=== PATIENT | female | born 1960 | race Asian ===

== ENCOUNTER 2016-11-13 18:14 | Emergency (ER) | payer OTHER ==
[~2016-11-13] VITALS: Ht 167.6 cm; Wt 77.3 kg
[2016-11-13 18:15] VITALS: Ht 167.6 cm; Wt 77.3 kg
--- OUTSIDE RECORDS SUMMARY | 2016-11-13 18:24 | XMS REPORT | Continuity of Care Document ---
Author Author [facility] Organization [facility] Address Unknown Phone Unavailable Allergies Active Description Code Type Severity Reaction Onset Reported/Identified Relationship to Patient Clinical Status Yes NKDA N/A N/A Yes No Allergy Information Drug Allergy 06/20/2012 Yes No Known Allergies Drug Allergy 06/20/2012 Yes No Known Allergies Drug Allergy N/A N/A 06/20/2012 Yes No Known Drug Allergies Drug Allergy 06/20/2012 Yes No Known Drug Allergies Drug Allergy N/A N/A 06/20/2012 Yes No Known Food Allergies Food Allergy 06/20/2012 Yes No Known Food Allergies Food Allergy N/A N/A 06/20/2012 Medications Problems Date Dx Coded Attending Type Code Diagnosis Diagnosed By 06/20/2012 Antonio Palafox MD Final 280.9 IRON DEF ANEMIA NOS 06/20/2012 Antonio Palafox MD Final 429.3 CARDIOMEGALY 06/20/2012 Antonio Palafox MD Final 553.3 DIAPHRAGMATIC HERNIA 06/20/2012 Antonio Palafox MD Final 593.2 ACQUIRED KIDNEY CYST 06/20/2012 Antonio Palafox MD Final 621.2 UTERINE HYPERTROPHY 06/20/2012 Antonio Palafox MD Final 719.43 JOINT PAIN-FOREARM 06/20/2012 Antonio Palafox MD Final 724.1 PAIN IN THORACIC SPINE 06/20/2012 Antonio Palafox MD Final 786.50 CHEST PAIN NOS 06/20/2012 Antonio Palafox MD Final 789.67 GENERAL ABD TENDERNESS 06/20/2012 Antonio Palafox MD Admitting 959.8 INJ MULT SITE/SITE NEC 05/12/2013 Rip Joya MD Final 793.82 INCONCLUSIVE MAMMOGRAM 05/12/2013 Rip Joya MD Final V76.12 SCREEN MAMMOGRAPHY NEC 05/12/2013 Rip Joya MD Admitting V76.12 SCREEN MAMMOGRAPHY NEC 07/01/2013 Rip Joya MD Final 610.0 SOLITARY BREAST CYST 07/01/2013 Rip Joya MD Final 793.82 INCONCLUSIVE MAMMOGRAM Procedures Results Encounters ACCT No. Visit Date/Time Discharge Status Pt. Type Provider Facility Loc./Unit Complaint [id number] 07/01/2013 09:54:00 2012 23:59:59 CLS Outpatient Rip Joya MD [facility] on [facility] [id number] 05/12/2013 15:14:00 2012 23:59:59 CLS Outpatient Rip Joya MD [facility] on [facility] [id number] 06/20/2012 06:18:00 2011 18:43:00 DIS Outpatient Antonio Palafox MD [facility] on [address]
--- OUTSIDE RECORDS SUMMARY | 2016-11-13 18:24 | XMS REPORT | Referral Summary ---
Author Author [facility] Organization [facility] Address Unknown Phone Unavailable Care Team Providers Care Lawyer Probate Name Role Phone Marcus Major Primary Care Physician [phone] Encounter [facility] [id number] Date(s): 10/05/15 - 10/05/15 [facility] [address] [place] [id number] Discharge Diagnosis: Elevated cholesterol Discharge Diagnosis: Fatty liver Discharge Disposition: 01-Home or Self Care Attending Physician: Vangie Mcrae MS, RD, MAURY Admitting Physician: Vangie Mcrae MS, RD, MAURY Vital Signs No data available for this section Problem List Condition Effective Dates Status Health Status Informant Elevated Active cholesterol(Confirme d) Allergies, Adverse Reactions, Alerts No data available for this section Medications No data available for this section Results No data available for this section Immunizations No data available for this section Procedures No data available for this section Social History No data available for this section Assessment and Plan Extracted from: Title: Office Visit Note Author: Vangie Mcrae MS, RD, Date: 10/05/15 LD Assessment/Plan Track food intake on LoseIt application for review of fat intake. Increase walking to meet a minimum of 150 minutes per wee. Continue to substitute lower fat option in recipes and avoid fried foods and high fat protein/meats. Handouts: fat restriction guidelines, label and weight loss tips. Follow up for review and additional questions. Spent approximately 30minutes with patient today. Referring physician Marcus Major MD Supervising physician MD Svetlana Marcum
--- NOTE | 2016-11-13 18:29 | ERPDOC ---
Departure Disposition Decision Date: November 13, 2016 Disposition Decision Time: 21:09 Disposition: 01 DISCHARGED HOME, SELF-CARE Impression Impression Impression: Primary Impression: Vertigo Severity: Severe Condition: Improved Seen By: Physician only Patient Instructions: Vertigo (ED) Problems/Meds/Labs Reviewed?: Yes Medications reviewed and manag: Yes Additional Instructions: Meclizine 5 mg, one to 2 tablets 4 times daily as needed for spinning sensation/ dizziness Compazine 10 mg one tablet 4 times daily as needed for nausea See your new doctor later this week for recheck Follow up care ordered?: Yes Mental Status: Alert Scripts Meclizine HCl (Meclizine HCl) 25 Mg Tablet 50 MG PO QID Y for VERTIGO, #30 TAB 0 Refills Prov: GREG DURHAM MD 11/13/16 HPI - CVA/Neuro General Chief Complaint: Dizzy Stated Complaint: DIZZINESS Time Seen by Provider: 18:21 Source: patient, EMS Exam Limitations: no limitations HPI - CVA/NEURO Initial Comments At 1700 today she had sudden onset of vertigo with severe dizziness and subsequent vomiting 1. EMS found the patient initially to be hypertensive, one she had vomited her pressure normalized and stayed normal. Patient persists with vertigo and lightheadedness, but has no other complaint. On review of systems patient did state that she felt a slight tingling along the left side of her neck down to her left shoulder. Initially her workplace thought that she had been aspirated by EMS for similar symptoms in the past, however the patient denies ever having any symptoms like this whenever being transported by EMS from her workplace. Patient has no significant past medical problems, sees a new physician in [place] where she lives, and is never had any major medical problems or hospitalizations according to her history. Occurred At: home Onset/Timing: Rapid Duration: 1-3 hrs Severity: moderate Associated Symptoms: nausea/vomiting, DENIES: confusion, fatigue, fever/chills , insomnia, loss of consciousness, muscle spasms, numbness in legs/feet, paresthesia, ringing in ears, seizures, sleepy, slurred speech, tingling in legs /feet, trouble walking, vision changes, weakness Hx of Similar Symptoms: No Allergies: Coded Allergies: No Known Allergies (Unverified , 11/13/16) Past History Patient Medical History Problem List Updates: Vertigo, often treated with medical oozing and IV fluids Anemia Hypertension Past Medical History Metabolic: hypercholesterolemia, hypertension Hematologic: anemia Surgical History Denies Surgeries Social History Smoking Status: Never smoker Does patient use chewing tobac: No Second Hand Exposure: No Substance Use Type: does not use Alcohol Intake: none Record Review Pertinent history updated: Yes Review of Systems Constitutional Constitutional: dizziness, fatigue, DENIES: appetite decrease, appetite increase, chills, fever, weakness ENMT Ears: DENIES: pain Hearing: DENIES: hearing loss, tinnitus Balance: DENIES: vertigo Mouth/Throat: DENIES: change in swallowing, change in voice, hoarsness, painful swallowing, sore throat Cardiovascular Cardiac: DENIES: chest pain, dyspnea on exertion Rhythm/Rate: DENIES: irregular beat, palpitations, tachycardia Vascular: DENIES: pedal edema Pulmonary Respiratory: DENIES: cough, dyspnea, pleuritic chest pain GI Upper Abdomen: nausea, vomiting, DENIES: dysphagia, food intolerances, heartburn/indigestion, hematemesis, pain Lower Abdomen: DENIES: blood in stool, constipation, diarrhea, pain, painful BM General: DENIES: burning, dysuria, frequency, pain, urgency Musculoskeletal General: DENIES: cramps, joint pain, joint swelling, pain, weakness Integumentary Skin: DENIES: rash, sores Neurological General: DENIES: headache, numbness, tingling, vertigo, weakness Psychiatric Psychiatric: DENIES: anxiety, depression, nervousness Physical Exam General General Nourishment: well nourished, well developed, appears stated age General Body Habitus: disheveled Vitals and Pain First Documented Vital Signs Date Time Temp Pulse Resp B/P Pulse Ox O2 Delivery O2 Flow Rate FiO2 11/13/16 18:15 62 16 152/117 98 Room Air Weight: Kilograms: Height (feet): Height (inches): Triage Pain Scale: RN VS reviewed by Provider: Yes Comments Patient appears somewhat sluggish, is slow to answer questions, but when she does answer she is alert and oriented and able to follow complex commands Normal Exams: Head: Normocephalic w/o trauma Eyes: Pupils are PERRLA w/ EOMI, No scleral icterus, irritation, or foreign bodies noted ENMT: No facial trauma, nasal exudates, pharyngeal erythema, or exudates are noted Neck: Full range of motion, without adenopathy, JVD, bruits or thyromegaly Chest/Resp: Clear all esposito, with good airflow, and symmetry bilaterally CV: Regular rate and rhythm, without murmur or gallop, Pulses 2+ all extremities, capillary refill, <2 seconds all ext., no pedal edema noted Abdomen: Bowel sounds positive, soft, non-tender, non-distended, no hepatosplenomegaly, masses or bruits noted Lymphatic: No lymphadenopathy, or lymphedema noted Musculoskeletal: No tenderness, or deformity noted, good range of motion, all extremities Integumentary: No rashes, hives, or bruising noted, hair and nails, without abnormality Neurologic: Patient is alert, and oriented, cranial nerves, motor/sensory/ cerebellar, exams w/o gross deficits, to observation Psychiatric: Patient exhibits, appropriate attention, emotion and affect Progress Results/Orders Orders Procedure Category Date Status Time Iv Lock (Ed Only) EDM 11/13/16 Transmitted 18:22 Ct Head W/O Contrast CT 11/13/16 Taken EKG EKG 11/13/16 Taken Troponin I W LAB 11/13/16 Complete Hemolysis Index Cmp - Comprehensive LAB 11/13/16 Complete Metabolic Cbc W/Auto LAB 11/13/16 Complete Diff-Reflex Manual Ua, Dip Wreflex LAB 11/13/16 Complete Microsc & Whittling Room Operator 18:22 Meclizine (Antivert PHA 11/13/16 In Process 25 Mg) 21:00 Normal Saline (Normal PHA 11/13/16 Complete Saline Iv) 18:30 Lab Results Laboratory Tests Test 11/13/16 18:53 11/13/16 20:07 White Blood Count 9.2T/MM3 Red Blood Count 4.98M/MM3 Hemoglobin 14.1GM/DL Hematocrit 41.8% Mean Corpuscular Volume 83.9UM3 Mean Corpuscular Hemoglobin 28.3UUG Mean Corpuscular Hemoglobin Concent 33.7GM/DL RDW Standard Deviation 38.0FL Platelet Count 150T/MM3 Mean Platelet Volume 11.5UM3 Immature Granulocyte % (Auto) 0.9% Neutrophils (%) (Auto) 46.7% Lymphocytes (%) (Auto) 45.2% Monocytes (%) (Auto) 5.6% Eosinophils (%) (Auto) 1.4% Basophils (%) (Auto) 0.2% Absolute Immature Granulocyte (auto 0.08T/MM3 Absolute Neutrophils (auto) 4.3T/MM3 Absolute Lymphocytes (auto) 4.2T/MM3 Absolute Monocytes (auto) 0.5T/MM3 Absolute Eosinophils (auto) 0.1T/MM3 Absolute Basophils (auto) 0.0T/MM3 Turbidity < 20 Sodium Level 145MEQ/L Potassium Level 3.4MEQ/L Chloride Level 103MEQ/L Carbon Dioxide Level 26MEQ/L Anion Gap 16MEQ/L Blood Urea Nitrogen 14.0MG/DL Creatinine 0.6MG/DL Glomerular Filtration Rate Calc 103 BUN/Creatinine Ratio 23RATIO Glucose Level 125MG/DL Calculated Osmolality 281MOSM/KG Calcium Level 9.4MG/DL Total Bilirubin 0.80MG/DL Icterus Index < 2 Aspartate Amino Transf (AST/SGOT) 71U/L Alanine Aminotransferase (ALT/SGPT) 86U/L Alkaline Phosphatase 131U/L Troponin I < 0.012ng/ml Total Protein 8.5G/DL Albumin 4.8G/DL Globulin 3.7G/DL Albumin/Globulin Ratio 1.3RATIO Chemistry Specimen Hemolysis < 15 Urine Collection Type Cleancatch-midstream Urine Color Yellow Urine Turbidity Clear Urine pH 6.0 Urine Specific [place] 1.020 Urine Protein Negative Urine Glucose (UA) Negative Urine Ketones Negative Urine Blood Negative Urine Nitrite Negative Urine Bilirubin Negative Urine Urobilinogen 0.2EU/DL Urine Leukocyte Esterase Negative Urinalysis Comment Microscopic not ind. Medications Current ED Medications Meclizine HCl 50 mg 50 mg TID PO Last administered on 11/13/16 19:41; Start at 21:00 Sodium Chloride (Normal Saline IV) 1,000 ml @ 0 mls/hr Q0M ONCE IV Last administered on 11/13/16 19:43; Start 11/13/16 at 18:30; Stop 11/13/16 at 18:31 ; Status DC Progress Progress EKG - normal sinus rhythm without ischemia, ectopy, or infarction After workup was initiated and most of the else were back, patient's family from out of town called and stated that the patient has a history of vertigo with the same symptoms, and medical seen and IV fluids often helps very much. CBC - n CMP - n Troponin - n CT head - n UA - n Patient given 1 L normal saline IV fluid bolus, Meclizine and 50 mg for vertigo - To significant improvement GREG DURHAM MD November 13, 2016 18:29
[2016-11-13] MEDS ORDERED: NORMAL SALINE 1,000 ML IV ONE (18:30)
[2016-11-13] MEDS ORDERED: MULT-933 PO (18:43)
[2016-11-13 19:09] LABS: BASOPHILS % (AUTO) 0.2 % (0-2); EOSINOPHILS # (AUTO) 0.1 T/MM3 (0-0.5); EOSINOPHILS % (AUTO) 1.4 % (0-4); HCT - HEMATOCRIT 41.8 % (36-46); HGB - HEMOGLOBIN 14.1 GM/DL (12-16); IMMATURE GRANULOCYTE # (AUTO) 0.08 T/MM3 (0.00-0.03); IMMATURE GRANULOCYTE % (AUTO) 0.9 % (0.0-0.5); LYMPHOCYTES # (AUTO) 4.2 T/MM3 (1-4.8); LYMPHOCYTES % (AUTO) 45.2 % (23-45); MEAN CORPUSCULAR HGB 28.3 UUG (26-34); MEAN CORPUSCULAR HGB CONC(MCHC 33.7 GM/DL (31-37); MEAN CORPUSCULAR VOLUME 83.9 UM3 (80-100); MEAN PLATELET VOLUME 11.5 UM3 (9.4-12.4); MONOCYTES # (AUTO) 0.5 T/MM3 (0-0.8); MONOCYTES % (AUTO) 5.6 % (0-9.0); NEUTROPHILS #(AUTO)-ABSOLUTE 4.3 T/MM3 (1.8-7.7); NEUTROPHILS % (AUTO) 46.7 % (33-66); RED BLOOD COUNT 4.98 M/MM3 (4.00-5.20); WBC - WHITE BLOOD COUNT 9.2 T/MM3 (4.5-11.0)
[2016-11-13 19:14] LABS: ALBUMIN 4.8 G/DL (3.5-5.0); ALBUMIN/GLOBULIN RATIO 1.3 RATIO (1.1-2.2); ALKALINE PHOSPHATASE 131 U/L (38-126); ALT (SGPT) 86 U/L (9-52); ANION GAP 16 MEQ/L (5-15); AST (SGOT) 71 U/L (14-36); BUN/CREATININE RATIO 23 RATIO (6-26); CALCIUM 9.4 MG/DL (8.4-10.2); CHLORIDE 103 MEQ/L (98-107); CO2 - CARBON DIOXIDE 26 MEQ/L (22-30); CREATININE 0.6 MG/DL (0.7-1.2); GLOMERULAR FILTRATION RATE 103; GLUCOSE 125 MG/DL (65-110); POTASSIUM 3.4 MEQ/L (3.6-5); SODIUM 145 MEQ/L (134-144); TOTAL PROTEIN 8.5 G/DL (6.3-8.2)
--- OUTSIDE RECORDS SUMMARY | 2016-11-13 19:22 | XMS REPORT | Continuity of Care Document ---
Author Author [facility] Organization [facility] Address Unknown Phone Unavailable Allergies Active Description [...] Status Pt. Type Provider Facility Loc./Unit Complaint [id number] 07/01/2013 09:54:00 2012 23:59:59 CLS Outpatient Rip Joya MD [facility] on [facility] [id number] 05/12/2013 15:14:00 2012 23:59:59 CLS Outpatient Rip Joya MD [facility] on [facility] [id number] 06/20/2012 06:18:00 2011 18:43:00 DIS Outpatient Antonio Palafox MD [facility] on [address]
--- NOTE | 2016-11-13 19:41 | NUR ---
PO MEDS MECLAZINE GIVEN CHARTED W/ PT TOLERANCE
[2016-11-13 20:17] LABS: BLOOD, URINE NEGATIVE (NEGATIVE); COLOR,URINE YELLOW (YELLOW); LEUKOCYTE ESTERASE ,URINE NEGATIVE (NEGATIVE); NITRITE,URINE NEGATIVE (NEGATIVE); UROBILINOGEN,URINE 0.2 EU/DL (NORMAL)
[2016-11-13] MEDS ORDERED: MECLIZINE 25 MG TABLET PO SCH (21:00)
[2016-11-13] MEDS ORDERED: MECL-103 PO (21:10)
[2016-11-13] MEDS ORDERED: PROC-14 PO (21:41)
[2016-11-13 21:45] VITALS: BP 139/95; PULSE 61; RESP 17; O2SAT 99
--- NOTE | 2016-11-14 08:13 | DI ---
Indication: ITS.REASON: acute onset vertigo PROCEDURE: CT HEAD W/O CONTRAST: Encounter: Initial Comparison: None Technique: Axial CT images through the head were performed without contrast. Iterative Reconstruction dose reducing technique was utilized. FINDINGS: The ventricles are of normal size, shape, and contour for the patient's age. The brainstem, cerebellum, and cerebral hemispheres have a normal morphology and CT attenuation. There is no evidence of midline displacement. No hemorrhage, signs of acute territorial stroke, mass effect, mass lesions, or edema is evident. The visualized portions of the skull base, midface, and calvarium demonstrate no abnormality. The paranasal sinuses are well aerated and free of significant disease. The tympanic and mastoid cavities appear normal. IMPRESSION: No acute intracranial abnormality or hemorrhage. There is a preliminary report by [employer] radiologic. .
== END 2016-11-13 21:45 | disposition short-term general hospital (02) ==
LOC: ED 18:14
DX: R42 Dizziness and giddiness (principal); R11.10 Vomiting, unspecified; I10 Essential (primary) hypertension; R20.2 Paresthesia of skin
CPT/HCPCS: 36415; 70450; 80053; 81003; 84484; 85025; 93005; 96360; 99284; J7030